=== PATIENT | female | born 1955 | race Caucasian/White ===

== ENCOUNTER → 2023-03-08 | Outpatient (CLI) | payer MEDICARE ==
[2023-03-10 10:35] VITALS: BP 94/53; PULSE 98; TEMP 99.5; BMI 4921.0
--- NOTE | 2023-04-05 08:44 | P.HPBAR ---
Bariatric H&P - History & Physicial H&P Date: 03/08/23 History & Physicial: Visit/CC: panniculectomy consult Patient initial contact: Initial weight: Initial weight in pounds: Height: 5 in Initial BMI: Last weight: Current weight: 79.379 kg Current weight in pounds: 175.00 Current BMI: 4921.0 [place] body weight (based on NIH guidelines): Excess body weight loss: The patient is a 67 year-old F who presents for Bariatric Assessment. Patient presents today for bariatric follow-up. The patient has had Mirian surgery many years ago. She's lost in excess of 100 pounds. Patient is interested in the left. 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 The patient has a large pannicular flap with evidence of chronic skin irritation. Past Medical History History of Any Multi-Drug Resistant Organisms: None Reported Past Anesthesia/Blood Transfusion Reactions: No Reported Reaction Smoking Status: Never smoker Surgical - Exam Vital Signs Temp Pulse BP 99.5 F 98 94/53 03/08/23 14:00 03/08/23 14:00 03/08/23 14:00 - General well developed, well nourished, no distress - Eyes PERRL - ENT normal pinna - Abdomen Abdomen: soft, non tender - Integumentary Large pannus with evidence of chronic skin irritation Bariatric Assessment & Plan Plan: Patient has done very well with LAP-BAND system. She lost Is 100 pounds. She has a well-formed panniculus. She's had issues with chronic skin irritation. Patient will be attempted to be authorized for panniculectomy. Bariatric Checklist Checklist: Plan: Checklist: EGD: 1. Hiatal hernia: 2. H. Pylori: HgbA1c: Vitamin D: Smoking: Primary care physician referral: Psychiatry clearance: Cardiology clearance: Sleep study: Diet journal: VTE risk score: VTE risk level: Rehab needs at discharge:
== END ==
LOC: BARWHC3 14:01
PROVIDERS: ATTEND Surgery
DX: E66.01 Morbid (severe) obesity due to excess calories (principal); Z46.51 Encounter for fitting and adjustment of gastric lap band; Z68.42 Body mass index [BMI] 45.0-49.9, adult
CPT/HCPCS: 99202

== ENCOUNTER → 2025-03-05 | Outpatient (CLI) | payer MEDICARE ==
[2025-03-05 10:27] VITALS: BP 115/72; PULSE 82; RESP 16; TEMP 97.8; BMI 32.2
--- NOTE | 2025-03-08 15:28 | P.HPBAR ---
Bariatric H&P - History & Physicial H&P Date: 03/05/25 History & Physicial: Visit/CC: Band F/U Patient initial contact: Initial weight: Initial weight in pounds: Height: 5 ft Initial BMI: Last weight: Current weight: 74.843 kg Current weight in pounds: 165.00 Current BMI: 32.2 [place] body weight (based on NIH guidelines): Excess body weight loss: The patient is a 69 year-old F who presents for Bariatric Assessment. this is a 69-year-old female who presents today for. Follow-up. Patient requesting a adjustment of her A Lap-Bandd. She has some complaints of her heartburn and GERD. Past Medical History History of Any Multi-Drug Resistant Organisms: None Reported Past Anesthesia/Blood Transfusion Reactions: No Reported Reaction Smoking Status: Never smoker Surgical - Exam Vital Signs Temp Pulse Resp BP 97.8 F 82 16 115/72 03/05/25 10:25 03/05/25 10:25 03/05/25 10:25 03/05/25 10:25 - General well developed, well nourished - Eyes PERRL - ENT normal pinna - Neck no masses - Abdomen Abdomen: soft, non tender Bariatric Assessment & Plan Plan: patient's Lap-Band was adjusted. She had 1 cc removed from the band. She will follow-up in 4 weeks. Bariatric Checklist Checklist: Plan: Checklist: EGD: 1. Hiatal hernia: 2. H. Pylori: HgbA1c: Vitamin D: Smoking: Primary care physician referral: Psychiatry clearance: Cardiology clearance: Sleep study: Diet journal: VTE risk score: VTE risk level: Rehab needs at discharge:
== END ==
LOC: BARWHC3 10:12
PROVIDERS: ATTEND Surgery
DX: E66.01 Morbid (severe) obesity due to excess calories (principal); K21.9 Gastro-esophageal reflux disease without esophagitis; R12 Heartburn; Z68.32 Body mass index [BMI] 32.0-32.9, adult
CPT/HCPCS: 43999